=== PATIENT | male | born 1950 | race Caucasian/White ===

== ENCOUNTER → 2016-03-18 | Outpatient (CLI) | payer MEDICARE, OTHER ==
[~2016-03-18] MED LIST: ALLO300T2 PO; ASPI-860 PO; CITA20TA12 PO; DXZS4T PO; EZET1TAB6 PO; FENO145T20 PO; HCTZ12.5T PO; HYDR-3702 PO; LIRA0.6P SQ; METH4TAB27 PO; NIAC1000 PO; NITR0.4T7 SL; OMEG300C3 PO; RANI150T15 PO; TEST1.25 TD; TRM50T PO
--- NOTE | 2016-03-18 13:07 | Diagnostic Imaging Report ---
Indication: Left wrist pain Exam: AP, oblique, lateral views of the left wrist are obtained. Findings: There is narrowings of the radiocarpal joint. There is degenerative change of first carpal-metacarpal joint. There is no acute fracture or acute bony abnormality. IMPRESSION: Osteoarthritic changes. No acute abnormality is visualized. Dictated by: Dictated on workstation # [id number]
== END ==
LOC: RAD 10:18
PROVIDERS: ATTEND Family Medicine
DX: M19.032 Primary osteoarthritis, left wrist (principal)
CPT/HCPCS: 73110

== ENCOUNTER → 2016-04-14 | Outpatient (CLI) | payer MEDICARE, OTHER ==
[2016-04-14 09:03] LABS: MEAN PLATELET VOLUME 9.9 FL (6.0-9.5); WHITE BLOOD COUNT 8.35 10^3uL (4.0-11.0)
[2016-04-14 09:08] LABS: BILIRUBIN,URINE Negative (Negative); CLARITY,URINE Clear; COLOR,URINE Yellow; GLUCOSE, URINE (UA) Negative (Negative); LEUKOCYTE ESTERASE, URINE Negative (Negative)
[2016-04-14 09:30] LABS: MEAN CORPUSCULAR HEMOGLOBIN 32.3 PG (26.0-34.0)
[2016-04-14 09:32] LABS: ALBUMIN 4.1 g/dL (3.4-5.0); ANION GAP 15.2 MEQ/L (3-15); PHOSPHORUS 3.6 mg/dL (2.4-4.9)
[2016-04-14 10:43] LABS: RBC,URINE 0-2 /HPF; URINE CENTRIFUGED VOLUME 12 mL
== END ==
LOC: LAB 08:53
PROVIDERS: ATTEND Specialist
DX: N18.4 Chronic kidney disease, stage 4 (severe) (principal); E11.9 Type 2 diabetes mellitus without complications; E55.9 Vitamin D deficiency, unspecified
CPT/HCPCS: 36415; 80069; 81003; 81015; 82306; 85027

== ENCOUNTER → 2016-05-24 | Outpatient (CLI) | payer MEDICARE, OTHER ==
[2016-05-24 12:26] LABS: BASOPHILS % (AUTO) 0 % (0-2); EOSINOPHILS # (AUTO) 0.2 10^3uL; EOSINOPHILS % (AUTO) 2 % (0-4); LYMPHOCYTES # (AUTO) 1.6 X10^3; MEAN CORPUSCULAR HGB CONC 34.5 g/dL (31.0-37.0); MEAN CORPUSCULAR VOLUME 92 FL (80-100); MEAN PLATELET VOLUME 10.1 FL (6.0-9.5); MONOCYTES # (AUTO) 0.8 X10^3; MONOCYTES % (AUTO) 9 % (3-11); NEUTROPHILS # (AUTO) 6.7 X10^3; NEUTROPHILS % (AUTO) 72 % (51-67); PLATELET COUNT 247 10^3uL (150-450); WHITE BLOOD COUNT 9.36 10^3uL (4.0-11.0)
[2016-05-24 12:27] LABS: MEAN CORPUSCULAR HEMOGLOBIN 31.8 PG (26.0-34.0)
[2016-05-24 12:34] LABS: BILIRUBIN,URINE Negative (Negative); CLARITY,URINE Clear; COLOR,URINE Yellow; GLUCOSE, URINE (UA) Negative (Negative); LEUKOCYTE ESTERASE ,URINE Negative (Negative); PH,URINE 5.5 (5.0 - 8.0)
[2016-05-24 12:46] LABS: ALBUMIN 4.2 g/dL (3.4-5.0); ANION GAP 14.9 MEQ/L (3-15); CALCULATED IONIZED CALCIUM 4.4 mg/dL (3.8-4.6); TOTAL PROTEIN 7.2 g/dL (6.4-8.5); URINE CENTRIFUGED VOLUME 12 mL
[2016-05-24 12:47] LABS: RBC,URINE None Seen /HPF
== END ==
LOC: LAB 12:16
PROVIDERS: ATTEND Family Medicine
DX: D50.8 Other iron deficiency anemias (principal); R79.89 Other specified abnormal findings of blood chemistry; N39.0 Urinary tract infection, site not specified; E03.4 Atrophy of thyroid (acquired)
CPT/HCPCS: 36415; 80053; 81003; 81015; 84436; 84443; 85025

== ENCOUNTER → 2016-05-28 | Outpatient (CLI) | payer MEDICARE, OTHER ==
--- NOTE | 2016-05-28 09:16 | Diagnostic Imaging Report ---
INDICATION: Torn right labrum with possible reinjury. Surgery was in 2004. EXAMINATION: MRI of the right shoulder without contrast dated 05/28/2016. COMPARISON: None. FINDINGS: Diffuse hypointensity is noted as well as irregularity throughout the supraspinatus and infraspinatus tendons. Multifocal areas of defects which extend from the bursal through the articular surface are noted both at the footprint and also towards the musculotendinous junction. Although a focal area of significant retraction is not appreciated, there is a likely serpiginous or several separate full-thickness tears throughout the fibers of the supraspinatus and infraspinatus tendons. Far anteriorly, a focal deep bursal sided tear is noted with adjacent screws extending into the humerus. There is diffuse high signal throughout the supraspinatus and infraspinatus tendons. The subscapularis tendon contains diffuse high signal as well with no discontinuity appreciated. The high signal is likely due to tendinosis versus a small partial tear. The long head of the biceps tendon lies within the bicipital groove. It is somewhat irregular in appearance and likely contains a partial-thickness longitudinal split tear. There is fluid and edema adjacent to and within the biceps tendon sheath. This surrounds the mid aspect of the biceps tendon musculature but is incompletely imaged. If there is concern for a more distal biceps tendon tear, imaging of the elbow would be recommended. The labrum is not well evaluated without intra-articular contrast. Diffuse enlargement and hyperintensity in the labrum are noted superiorly. If there is concern for a labral tear, post-arthrogram imaging could better characterize the labrum. There are multiple areas of susceptibility artifact overlying the shoulder, consistent with the previous history of surgery. The AC joint demonstrates moderate degenerative findings. The muscle volume demonstrates minimal fatty infiltration involving the supraspinatus, infraspinatus, and subscapularis tendons with atrophy of the supraspinatus tendon. IMPRESSION: 1. Post operative changes as described above with diffuse irregularity and areas of high signal throughout the supraspinatus and infraspinatus tendons. Multifocal areas of full-thickness tearing are suspected although no retraction is appreciated. 2. Degenerative signal throughout the superior labrum. A superimposed tear is difficult to exclude but, if there is concern for such a process, the above report discusses recommendations. 3. Diffuse edema along the tract of the long head of the biceps tendon is incompletely imaged distally. If there is concern for a biceps tendon tear more distally, further imaging at the elbow would be recommended. A longitudinal split tear in the proximal biceps tendon is suspected. 4. Other findings as above. Dictated by: Dictated on workstation # [id number]
== END ==
LOC: RAD 06:55
PROVIDERS: ATTEND Family Medicine
DX: S43.491A Other sprain of right shoulder joint, initial encounter (principal); X58.XXXA Exposure to other specified factors, initial encounter; R93.6 Abnormal findings on diagnostic imaging of limbs
CPT/HCPCS: 73221

== ENCOUNTER 2016-06-28 15:30 | Outpatient (RCR) | payer MEDICARE, OTHER ==
--- NOTE | 2016-06-16 14:58 | PT/OT/ST INITIAL EVALUATION ---
Department of Health and Human Services Form Approved [facility] Care Financing Administration OMB No. [id number] PLAN OF CARE/ASSESSMENT FOR OUTPATIENT REHABILITATION (Complete for Initial Claims Only) 1. PATIENT'S NAME Juan Ramon Whaley 2. ACC # [id number] 3. [facility] [id number] 4. PROVIDER NO. [id number] 5. TYPE: PT 6. PRIOR HOSPITALIZATION NA 7. PRIMARY DX Right proximal biceps tear 8. SECONDARY DX NA 9. ONSET DATE 05/26/2016 10. REFERRAL DATE 06/03/2016 11. SOC. DATE 06/10/2016 12. TIME OF EVAL 13:05 to 14:13 12. REFERRING PHYSICIAN David Glass MD 13. CHARGES/UNITS Evaluation 91312 for moderate complexity. [place] [address] therapeutic exercise A vasopneumatic device was also utilized No charge provided for this code. Manual therapy was provided for 12 minutes, but no charge for this code. 14. G CODES D6259-QA Goal K3129-OB 15. PRIOR LEVEL OF FUNCTION; PERTINENT HISTORY (Prior therapy results, reason for referral.) S: Prior to therapy the patient consented to today's evaluation and treatment. The patient is a 65-year-old male referred by Dr. David Glass to address a right proximal biceps tear. The patient reports he was moving [employer] on 05/26/2016 and felt a pop in his right arm. The patient noted bruising initially and swelling in the upper extremity. He did see Dr. Glass and was found to have a right proximal biceps tear, which he is believes is of the short head tendon. Prior level of function: The patient does enjoy hunting and fishing and is active in his daily activities. He had no limitations prior to the onset of this injury. The patient is retired. Current level of function: The patient notes limitations in being able to lift weight with the right upper extremity secondary to the injury. He does know of any other limitations at this time. Therapy History: The patient has not had any recent therapy for this issue. Pain level: Current pain level is 3/10 and is described as soreness in the right medial biceps. Aggravating factors: The patient reports his pain is aggravated by using his right arm, lifting or carrying anything with his right arm, as well as elbow flexion. Relieving factors: Not using the upper extremity. Diagnostic testing: The patient has undergone an MRI, which revealed a positive biceps tear on the right. It was negative for any rotator cuff involvement. Past medical history: The patient had a right rotator cuff repair in 2004, history of insulin dependent diabetes mellitus, kidney issues that prevents him from being able to take a lot of pain medication, low back arthritis and the presence of heart stents. Current medications: The patient denies taking any medication at this time for pain. No other medication information was provided. Activity level: He reports as poor. Personal health rating: He reports as good. Patient's Goal: The patient's goal for physical therapy is to be able to use his right upper extremity to its full prior level of function. Justification for moderate complexity involves the patient's presence of a rotator cuff repair, the progression of patient's decreased use of right upper extremity secondary to impaired lifting ability, which he uses daily and inability to return to his activities as he was prior to the injury. 16. INITIAL ASSESSMENT/SAFETY PRECAUTIONS/MEDICAL COMPLICATIONS (Level of function at start of care. Be specific, use objective measures, list problems.) O: APPEARANCE, OBSERVATION AND GAIT: The patient does have a moderate swelling in distal right biceps. He demonstrates bilateral abduction with assessment of posture, as well as decreased rotational movements of the scapula on the right side with shoulder flexion and abduction. PALPATION: The patient has mild crepitus in the right shoulder with performance of shoulder range of motion. He does have tenderness to palpation of the right biceps muscle and the muscle belly, as well as significant tenderness to palpation of the parascapular musculature on the right side. SPECIAL TESTS: The patient has a 45% disability on the QuickDASH index. RANGE OF MOTION/FLEXIBILITY: The patient has equal and functional bilateral shoulder flexion and abduction. Internal rotation on the right is T7 functionally, left T7. External rotation on the right is T3 with shoulder hiking noted. On the left T3 with normal scapular stabilization. Right shoulder flexion is to 126 degrees. Left was not assessed this date. The patient does have full elbow extension bilaterally. STRENGTH: Shoulder flexion on the right is 3+/5 and painful. Left is 4-/5. Shoulder abduction on the right is 3+/5 and painful. Left is 4/5. Shoulder internal and external rotation is 3+/5 and painful. Left 4+/5. Elbow flexion, extension, forearm supination, and pronation were not assessed on the right side this date. Left elbow flexion and extension are 5/5. Forearm supination and pronation 5/5 on the left. TODAY'S TREATMENT: Today's treatment consisted of educating the patient on the findings of the evaluation and recommended treatment plan. The physical therapist initiated manual therapy to improve scapular mobility and decreased tightness around the right scapula area secondary to tightness noted on the initial evaluation. Therapeutic exercise was implemented including stretching of the cervical musculature emphasis on upper trapezii and levator scapula, as well as initiating scapula range of motion activities. The physical therapist also addressed pain and swelling with the use of a vasopneumatic device following the initiation of exercise and manual therapy to the right shoulder for 15 minutes. The patient was provided a home exercise program this date as well. 17. INITIAL POC: (Specify procedures, modalities, short and skilled nursing goals) A: The patient presents to physical therapy with a right proximal biceps tear with subsequent swelling, significant right upper extremity weakness and mild range of motion deficits in the right elbow. He does have a 45% disability on the QuickDASH index putting him at a G-code of W0892-YP. PROGNOSIS: The patient does have a good prognosis with regular therapy attendance and compliance with his home exercise program. INFORMED CONSENT: The diagnosis, prognosis, treatment plan, risks and expected outcomes were discussed with this patient and he is agreeable to today's established plan of care. SHORT TERM GOALS X3 WEEKS: 1. The patient will regain full elbow flexion on the right when measured against the left. 2. The patient will report independence and compliance with his home exercise program. 3. The patient will improve right shoulder flexion, abduction, internal and external rotation to be a minimum to be a 4/5 to improve use and stabilization of the right shoulder. HALFWAY GOALS X6 WEEKS: 1. The patient will have a disability score of no greater than 25% on the right side. 2. The patient will regain 5/5 strength in the bilateral shoulder flexion, abduction, internal and external rotation, to maintain strength and functional use of his upper extremities. 3. The patient will improve right elbow flexion and extension from supination and pronation strength to be 5/5 in order to complete carrying tasks and fishing and hunting as he was prior to injury. 4. The patient will deny any pain in the right shoulder that would limit function. P: Plan to see this patient 2 times a week for 6 weeks in order to address the right biceps tear with subsequent loss of range of motion and strength. Treatment will include modalities as needed with emphasis on vasopneumatic device to address pain and swelling. Manual therapy will be utilized to improve muscle mobility emphasis on the scapular region, but may be utilized at the biceps muscle belly as needed to improve mobility and flexibility. Therapeutic exercise will emphasize on improving range of motion throughout the right upper extremity with progressive strengthening as the patient tolerates. Functional education will be provided, as well as functional training to prevent further injury to the right upper extremity. Neuromuscular reeducation will also be provided emphasis on scapular stabilization. The patient was provided with a written home exercise program and this will be progressed as needed. Thank you for the referral of this patient. 18. FREQUENCY 2 times per week 19. DURATION 6 weeks 20. FUNCTIONAL LEVEL (End of claim period) 21. PHYSICIAN SIGNATURE ? ON FILE OR ENTER HERE: 22. DATE: I certify the need for these services furnished under this plan of care and if for partial hospitalization. 23. CERTIFICATION FROM THROUGH FORM FA-[id number]
== END 2016-07-26 09:29 | disposition home or self-care (01) ==
LOC: PT 15:30
PROVIDERS: ATTEND Orthopaedic Surgery
DX: S46.211D Strain of muscle, fascia and tendon of other parts of biceps, right arm, subsequent encounter (principal); X50.9XXD Other and unspecified overexertion or strenuous movements or postures, subsequent encounter
CPT/HCPCS: 97016; 97110; 97140; 97161; G8984; G8985

== ENCOUNTER → 2016-07-20 | Outpatient (CLI) | payer MEDICARE, OTHER ==
[2016-07-20 09:37] LABS: MAGNESIUM* 2.3 mg/dL (1.6-2.3)
--- NOTE | 2016-07-20 12:36 | Diagnostic Imaging Report ---
INDICATION: R6.00 TECHNIQUE: PA and lateral chest x-rays were performed. COMPARISON: 11/02/2013, 07/03/2015. FINDINGS: The cardiomediastinal silhouette and pulmonary vascularity are normal. The karey are negative. There is no pleural lesion. No lung parenchymal abnormality is identified. Mild degenerative changes are present throughout the thoracic spine. Absence of the lateral aspect of the right clavicle is noted which is unchanged from 2013 and may be post traumatic or old surgical change. IMPRESSION: No significant chest x-ray abnormality. No significant change. Dictated by: Dictated on workstation # [id number]
== END ==
LOC: RAD 09:09
PROVIDERS: ATTEND Family Medicine
DX: I49.8 Other specified cardiac arrhythmias (principal); R06.00 Dyspnea, unspecified; E78.2 Mixed hyperlipidemia; E11.65 Type 2 diabetes mellitus with hyperglycemia; E83.42 Hypomagnesemia; N41.0 Acute prostatitis; N41.9 Inflammatory disease of prostate, unspecified
CPT/HCPCS: 36415; 71020; 80061; 83036; 83735; 84153; 84550; 93005